=== PATIENT | male | born 1955 | race Caucasian/White ===

== ENCOUNTER 2022-05-31 14:07 | Emergency (ER) | payer MEDICARE ==
[~2022-05-31 14:07] MED LIST: ALDACTONE25 M1 PO; ATORVASTATIN CA20 MG PO; BISOPROLOL FUMAR5 MG PO; CARDIZEM CD240 MG PO; CATAPRES 0.2MG0.2 MG TD; CATAPRES0.1 MG PO; CELEXA20 MG PO; CLONIDINE HCL0.2 MG PO; COUMADIN2 MG PO; COZAAR100 MG PO; CYMBALTA 30MG C30 MG PO; DONEPEZIL HCL10 MG PO; EXFORGE 10-3201 EACH PO; FLORANEX TABLE1 EACH PO; GLUCOTROL XL5 MG PO; HCTZ12.5 MG PO; HCTZ25 MG PO; HYDRALAZINE HCL25 MG PO; KEFLEX250 MG PO; LANTUS SOL100 UNIT/1 SC; METFORMIN HCL500 MG PO; NITROQUIK SL0.4 MG SL; NORCO 5-325 TA1 EACH PO; NORVASC5 MG PO; OMEGA 3 FATTY ACIDS PO; PANTOPRAZOLE SO40 MG PO; PEN NEEDLE1 EAC1 SC; REMOVE; TAMSULOSIN HCL0.4 MG PO; TIZANIDINE HCL2 MG PO; VALSARTAN320 MG PO; VANCOCIN HCL250 MG PO; WARFARIN SODIUM3 MG PO; WARFARIN SODIUM4 MG PO
[2022-05-31 16:02] LABS: BASOPHIL 0.3 % (0-2); EOSINOPHIL 0.4 % (0-7); HGB 12.1 g/dl (13.2-18.0); LYMPHOCYTE 6.7 % (15-48); MCH 28.4 pg (25.0-31.0); MCHC 32.7 g/dL (32.0-36.0); MCV 86.9 fL (78.0-100.0); MONOCYTE 6.9 % (0-12); NEUTROPHIL 85.2 % (41-80); NRBC 0; PLT 236 K/uL (150-400); RBC 4.26 M/uL (4.70-6.00); RDW 12.9 % (11.5-14.0); WBC 15.2 K/uL (4.0-10.5)
[2022-05-31 16:11] LABS: INR 1.05 (0.9-1.2); PROTHROMBIN TIME 13.4 SECONDS (11.9-13.9)
[2022-05-31 16:27] LABS: ALBUMIN 3.5 g/dL (3.4-5.0); BILIRUBIN - TOTAL 0.3 mg/dL (0.2-1.0); CREATININE 1.18 mg/dL (0.67-1.17); GLOBULIN (CALCULATION) 3.6 g/dL; POTASSIUM 3.4 mmol/L (3.5-5.1); TOTAL PROTEIN 7.1 g/dL (6.4-8.2)
== END 2022-05-31 20:40 | disposition home or self-care (01) ==
LOC: FER 14:07
PROVIDERS: Physician Assistant
DX: S80.02XA Contusion of left knee, initial encounter (principal); M25.512 Pain in left shoulder; M25.532 Pain in left wrist; M79.89 Other specified soft tissue disorders; I12.9 Hypertensive chronic kidney disease with stage 1 through stage 4 chronic kidney disease, or unspecified chronic kidney disease; E11.22 Type 2 diabetes mellitus with diabetic chronic kidney disease; N18.9 Chronic kidney disease, unspecified; Z23 Encounter for immunization; Z88.8 Allergy status to other drugs, medicaments and biological substances; Z88.5 Allergy status to narcotic agent; Z88.1 Allergy status to other antibiotic agents; W01.10XA Fall on same level from slipping, tripping and stumbling with subsequent striking against unspecified object, initial encounter; Y92.009 Unspecified place in unspecified non-institutional (private) residence as the place of occurrence of the external cause
CPT/HCPCS: 36415; 71045; 72170; 73030; 73110; 73560; 80053; 84484; 85025; 85610; 90471; 90715; 93005